=== PATIENT | male | born 2000 | race Caucasian/White ===

== ENCOUNTER 2021-06-16 06:06 | Emergency (ER) | payer OTHER ==
[~2021-06-16 06:06] MED LIST: IBUPROFEN400 MG PO
[2021-06-16] MEDS ORDERED: NORCO 5-325 TA1 EACH PO (07:22)
== END 2021-06-16 07:56 | disposition home or self-care (01) ==
LOC: FER 06:06
DX: S52.352A Displaced comminuted fracture of shaft of radius, left arm, initial encounter for closed fracture (principal); S52.252A Displaced comminuted fracture of shaft of ulna, left arm, initial encounter for closed fracture; Z20.822 Contact with and (suspected) exposure to COVID-19; W19.XXXA Unspecified fall, initial encounter; Y93.72 Activity, wrestling; Y92.009 Unspecified place in unspecified non-institutional (private) residence as the place of occurrence of the external cause
CPT/HCPCS: 73090; 73110; U0002

== ENCOUNTER → 2021-06-18 | Day surgery (SDC) | payer OTHER ==
[~2021-06-18] VITALS: Ht 180.3 cm; Wt 93.2 kg
[~2021-06-18] MED LIST changes: +NORCO 5-325 TA1 EACH PO
== END | disposition home or self-care (01) ==
LOC: FAS 07:21
DX: S52.302A Unspecified fracture of shaft of left radius, initial encounter for closed fracture (principal); S52.252A Displaced comminuted fracture of shaft of ulna, left arm, initial encounter for closed fracture; X58.XXXA Exposure to other specified factors, initial encounter
CPT/HCPCS: 73090; 76000; J0690; J1100; J1170; J1885; J2250; J2405; J2795; J3010; J7120